=== PATIENT | male | born 1945 | race Caucasian/White ===

== ENCOUNTER → 2016-10-09 11:06 | Outpatient (CLI) | payer MEDICARE | END | disposition home or self-care (01) | LOC: D.MRI 11:06 | DX: M54.16 Radiculopathy, lumbar region (principal) ==

== ENCOUNTER → 2018-07-28 11:33 | Outpatient (CLI) | payer MEDICARE ==
[~2018-07-28 11:33] MED LIST: BAYER CHEWABLE81 MG; LEVOTHYROXINE150 MCG PO; LIPITOR20 MG PO; PLAVIX75 MG PO
== END | disposition home or self-care (01) ==
LOC: D.HCCARDIO 11:33
DX: I20.9 Angina pectoris, unspecified (principal)

== ENCOUNTER 2018-08-25 10:37 | Outpatient (CLI) | payer MEDICARE ==
[~2018-08-25] VITALS: Ht 180.3 cm; Wt 88.6 kg
--- NOTE | ~2018-08-25 | HEMODYNAMI ---
PATIENT:SHERRI KAUR MEDICAL RECORD: [id number] : 41 LOCATION:[facility] ADMISSION DATE: 08/25/18 Generatedon:08/25/201814:25 Patient name: SHERRI KAUR Patient #: [id number] SSN: : 1945 Date of study: 08/25/2018 Page: Of Hemodynamic Procedure Report Patient Data Patient Demographics Procedure consent was obtained First Name: SHERRI Gender: Male Last Name: VINCENT : 1945 [facility] Initial: PUSHPA Age: 73 year(s) Patient #: [id number] Race: Unknown Additional ID: [id number] Contact details [address]: [address] [place] [address] State: [place] City: [place] Zip code: [address] Past Medical History Allergies: No known allergies Admission Admission Data Admission Date: 08/25/2018 Admission Time: 10:37 Weight (lbs.): 196.21 Weight (kg.): 89 Lab Results Lab Result Date: 08/25/2018 Lab Result Time: 0:00 Biochemistry Name Units Result Min Max BUN mg/dl 16 --(---*)-- 7 18 Creatinine mg/dl 1.1 --(--*-)-- 0.6 1.3 CBC Name Units Result Min Max Hematocrit % 49.9 --(--*-)-- 42 54 Hemoglobin g/dl 17.3 --(---*)-- 13.5 17.5 Procedure Procedure Types Cath Procedure Diagnostic Procedure LHC LHC w/Coronaries FFR/IVUS FFR Initial Intra-Coronary IVUS Initial Sedation Charges Moderate Sedation up to 15 minutes Procedure Description Procedure Date Procedure Date: 08/25/2018 Procedure Start Time: 13:43 Procedure End Time: 14:24 Procedure Staff Name Function Isaac Mcgregor MD Performing Physician Yuli Mueller RT Monitor Blayne Galeano RT Scrub Alisha Allan RN Nurse Agnieszka Menchaca RT Monitor Procedure Data Cath Procedure Fluoroscopy Diagnostic fluoroscopy Total fluoroscopy Time: time: 10.6 min 10.6 min Diagnostic fluoroscopy Total fluoroscopy dose: dose: 1290 mGy 1290 mGy Contrast Material Contrast Material Type Amount (ml) Isovue 300 151 Entry Location Entry Primary Successful Side Size Upsize Upsize Entry Closure Alberto ccessful Closure Location (Fr) 1 (Fr) 2 (Fr) Remarks Device Remarks Radial Right 6 Fr Mechanical artery Short Compression Estimated blood loss: 5 ml Diagnostic catheters Device Type Used For End Catheter Placement DIAGNOSTIC Adithya 110cm Multi-vessel 5Fr catheter ([id number]) Angiography DIAGNOSTIC Bidwell 110cm 5 Multi-vessel Fr catheter (698829) Angiography Procedure Complications No complications Procedure Medications Medication Administration Route Dosage 0.9% NaCl I.V. 100 ml/hr Oxygen etCO2 Nasal cannula 2 l/min Lidocaine 2% added to field 20 Heparin Flush Bag added to field 2 bags (1000units/500ml NS) Radial Cocktail added to field 1 syringe (Verapamil 2mg/Nitro 400mcg/Heparin 1500units) Versed I.V. 2 mg Fentanyl I.V. 50 mcg Versed I.V. 2 mg Heparin Bolus I.V. 5000 units Fentanyl I.V. 50 mcg Hemodynamics Rest HGB: 17.3 (g/dl) Heart Rate: 73 (bpm) Pressure Samples Time Site Value (mmHg) Purpose Heart Use Rate(bpm) 13:45 LV 136/-3,5 Snapshot 72 13:46 AO 131/60(93) Pullback 74 13:46 LV 141/-10,5 Pullback 74 Gradients Valve Time Site 1 Site 2 Mean SEP/DFP Peak To Heart Use (mmHg) (sec/min) Peak Rate (mmHg) (bpm) Aortic 13:46 LV AO 20 8 10 74 141/-10,5 131/60(93) Calculations Valve P-P Mean Valve Index Valve Source Name Gradient Area Flow (cm2) Aortic 10 20 10 20 Snapshots Pre Cath Intra NCS Post Cath Vital Signs Time Heart Resp SPO2 etCO2 NIBP (mmHg) Rhythm Pain Sedation Rate (ipm) (%) (mmHg) Status Level (bpm) 13:32:31 69 16 100 38.2 182/98(153) NSR 0 (11) 10(A) , No pain 13:37:09 71 10 100 35.2 170/80(127) NSR 0 (11) 10(A) , No pain 13:41:31 69 13 98 14.9 141/80(116) NSR 0 (11) 10(A) , No pain 13:45:50 87 13 99 25.5 129/76(107) NSR 0 (11) 9(A) , No pain 13:50:12 70 12 98 29.2 138/71(110) NSR 0 (11) 9(A) , No pain 13:54:34 72 13 97 36 138/72(112) NSR 0 (11) 9(A) , No pain 13:58:58 69 12 96 34.4 137/72(112) NSR 0 (11) 9(A) , No pain 14:03:21 71 13 97 10.4 141/71(119) NSR 0 (11) 9(A) , No pain 14:07:45 71 13 98 36.7 142/71(116) NSR 0 (11) 9(A) , No pain 14:12:13 70 12 98 28.4 137/67(99) NSR 0 (11) 9(A) , No pain 14:16:39 70 11 98 32.9 145/69(111) NSR 0 (11) 10(A) , No pain 14:20:59 67 10 98 36.7 136/71(116) NSR 0 (11) 10(A) , No pain Medications Time Medication Route Dose Verified Delivered Reason Not es Effectiveness by by 13:33:24 0.9% NaCl I.V. 100 Isaac Alisha used for ml/hr Balbir Allan weighter 13:33:31 Oxygen etCO2 2 l/min Isaac Alisha used for Nasal Balbir Allan procedure cannula RN 13:33:37 Lidocaine 2% added 20ml Isaac Isaac for local to vial Balbir Mcgregor MD anesthetic field 13:33:42 Heparin Flush added 2 bags Isaac Isaac used for Bag to Balbir Mcgregor MD procedure (1000units/500ml field NS) 13:33:47 Radial Cocktail added 1 Isaac Isaac used for (Verapamil to syringe Balbir Mcgregor MD procedure 2mg/Nitro field 400mcg/Heparin 1500units) 13:38:57 Versed I.V. 2 mg Isaac Alisha for sedation Balbir Allan RN 13:39:02 Fentanyl I.V. 50 mcg Isaac Alisha for sedation Balbir Allan RN 13:43:07 Versed I.V. 2 mg Isaac Alisha for sedation Balbir Allan RN 13:43:55 Fentanyl I.V. 50 mcg Isaac Alisha for sedation Balbir Allan RN 13:59:02 Heparin Bolus I.V. 5000 Isaac Alisha for hugo ified units Balbir Allan anticoagulation with Dr. LISA Mcgregor Procedure Log Time Note 12:42:27 Patient Weight : 196.21 lbs 12:54:58 Signed procedure consent form obtained from patient. 12:55:01 Diagnostic Cath status Elective 12:55:02 Time tracking: Regular hours (M-F 7:00 - 5:00) 12:55:08 Plan of Care:Hemodynamics will remain stable., Cardiac rhythm will remain stable., Comfort level will be maintained., Respiratory function will remain adequate., Patient/ family verbilizes understanding of procedure., Procedure tolerated without complication., Recovers from procedure without complications.. 12:55:33 H&P Date Dictated: 08/25/2018 Within 30 days and on chart., H&P Addendum completed by physician on day of procedure. (MUST COMPLETE FOR ALL OUTPATIENTS). 12:55:40 Patient allergic to No known allergies 13:10:33 Lab Result : BUN 16 mg/dl 13:10:33 Lab Result : Hemoglobin 17.3 g/dl 13:10:33 Lab Result : Creatinine 1.1 mg/dl 13:10:33 Lab Result : Hematocrit 49.9 % 13:19:40 Yuli Mueller RT(R) sent for patient. Start room use. 13:24:03 Patient received from Pre/Post Procedure Room to CCL 1 Alert and oriented. Tansferred to table in Supine position. 13:24:05 Warm blankets applied, and adam hugger turned on for patient comfort. 13:24:06 Correct patient and procedure confirmed by team. 13:24:11 ECG and BP/O2 sat monitors applied to patient. 13:24:12 Pre-procedure instructions explained to patient. 13:24:12 Pre-op teaching completed and patient verbalized understanding. 13:33:24 0.9% NaCl 100 ml/hr I.V. was administered by Alisha Allan RN; used for procedure; 13:33:31 Oxygen 2 l/min etCO2 Nasal cannula was administered by Alisha Allan RN; used for procedure; 13:33:37 Lidocaine 2% 20ml vial added to field was administered by Isaac Mcgregor MD; for local anesthetic; 13:33:42 Heparin Flush Bag (1000units/500ml NS) 2 bags added to field was administered by Isaac Mcgregor MD; used for procedure; 13:33:47 Radial Cocktail (Verapamil 2mg/Nitro 400mcg/Heparin 1500units) 1 syringe added to field was administered by Isaac Mcgregor MD; used for procedure; 13:36:48 Rhythm: sinus rhythm 13:36:49 Baseline sample Acquired. 13:36:52 Full Disclosure recording started 13:36:57 Family in waiting room. 13:36:59 Patient NPO since Midnight. 13:37:00 Is patient on blood thinner?No 13:37:01 Patient diabetic? No. 13:37:04 Previous problem with sedation/anesthesia? No ? 13:37:05 Snore? Yes 13:37:06 Sleep apnea? No 13:37:07 Deviated septum? No 13:37:08 Opens mouth fully? Yes 13:37:09 Sticks out tongue? Yes 13:37:10 Airway obstruction? No ? 13:37:12 Dentures? No ? 13:37:13 Modified Isacc's test Ulnar < 7 seconds 13:37:15 Patient pain scale 0/10 ?. 13:37:18 IV patent on arrival in left hand with 0.9% NaCl at [facility]. 13:37:20 Lab results completed and on chart. 13:37:22 Right Radial & Right Groin area was prepped with chlora-prep and draped in sterile fashion 13:37:23 Alarms reviewed by R. N. 13:37:24 Sharps counted by scrub and verified by R.N. 13:37:27 Use device set Radial Dx or PCI 13:37:29 ACIST Syringe (92479) opened to sterile field. 13:37:31 Bag Decanter (2001S) opened to sterile field. 13:37:31 ACIST Hand Control (51773) opened to sterile field. 13:37:32 ACIST Manifold (94350) opened to sterile field. 13:37:32 Tegaderm 4 x 4 (1626W) opened to sterile field. 13:37:33 Medline Cath Pack ([id number]) opened to sterile field. 13:37:33 DIAGNOSTIC WIRE .035 260cm J wire (558837) opened to sterile field. 13:37:34 MBrace Wrist Support ([id number]) opened to sterile field. 13:37:35 SHEATH 6FR Slender (83-4937) opened to sterile field. 13:37:36 NEEDLE Cook 21G 4cm Radial (L32324) opened to sterile field. 13:38:31 --------ALL STOP TIME OUT------ 13:38:32 Final Timeout: patient, procedure, and site verified with staff and physician. All members of the team are in agreement. 13:38:33 Right Radial & Right Groin site verified by team. 13:38:35 Maximum allowable Isovue 300 dose 300ml. Physician notified. (300ml for normal creatinines. For patients with creatinine of 1.7 or higher multiply weight(kg) x 5 divided by creatinine.) 13:38:39 Fire Safety Assessment: A--An alcohol-based skin anteseptic being used preoperatively., C--Open oxygen or nitrous oxide is being used., D--An ESU, laser, or fiber-optic light is being used. 13:38:40 Physical assessment completed. ASA score P 2 - A patient with mild systemic disease as per Isaac Mcgregor MD. 13:38:43 Sedation plan: IV Moderate Sedation Medication:Versed, Fentanyl 13:38:57 Versed 2 mg I.V. was administered by Alisha Allan RN; for sedation; 13:39:02 Fentanyl 50 mcg I.V. was administered by Alisha Allan RN; for sedation; 13:43:07 Versed 2 mg I.V. was administered by Alisha Allan RN; for sedation; 13:43:18 Procedure started. 13:43:41 Local anesthetic to right radial artery with Lidocaine 2% by Isaac Mcgregor MD.INITIAL ACCESS ONLY 13:43:51 A 6 Fr Short sheath was inserted into the Right Radial artery 13:43:55 Fentanyl 50 mcg I.V. was administered by Alisha Allan RN; for sedation; 13:44:42 A DIAGNOSTIC Adithya 110cm 5Fr catheter (256931) was advanced over the wire and used for Multi-vessel Angiography. 13:45:53 LV hemodynamics recorded. 13:45:55 LV gram done using SHEIKH 13:46:02 Injector settings: Ml/sec: 5, Volume: 15, 13:46:11 EF : 55 % 13:46:50 RCA angiography performed. 13:46:54 Injector settings: Ml/sec: 3, Volume: 6, 13:49:11 Catheter removed. 13:49:23 A DIAGNOSTIC Bidwell 110cm 5 Fr catheter (124987) was advanced over the wire and used for Multi-vessel Angiography. 13:54:45 LCA angiography performed. 13:54:59 Injector settings: Ml/sec: 3, Volume: 6, 13:55:01 Catheter removed. 13:55:02 Proceeding to intervention. 13:56:09 INFLATOR Merit BasixCompak (RH3771) opened to sterile field. 13:56:10 BMW 300cm [place] 2 J wire ([id number]) opened to sterile field. 13:56:11 TUBING High Pressure Extension Tubing (Balbir) (YG1800O) opened to sterile field. 13:56:49 GUIDE 6FR XBLAD 3.5 catheter (02954198) opened to sterile field. 13:57:06 Grenola Verrata Plus pressure wire (92263M) opened to sterile field. 13:57:23 6 Fr xblad 3.5 guide catheter was inserted over the wire 13:59:02 Heparin Bolus 5000 units I.V. was administered by Alisha Allan RN; for anticoagulation; verified with Dr. Mcgregor 13:59:02 FFR/IFR wire advanced. 13:59:49 Wire advanced across lesion. 14:13:36 lad lesion measured at 0.99 with IFR 14:13:52 Grenola [place] IVUS Catheter (70465A) opened to sterile field. 14:14:28 IVUS catheter advanced over wire. 14:20:45 IVUS pass to LAD lesion performed. 14:20:46 IVUS catheter removed over wire. 14:20:57 Wire removed. 14:20:57 Guide catheter removed. 14:21:03 TR BAND Standard (IWQ14SYS) opened to sterile field. 14:22:04 Sheath removed intact; hemostasis achieved with Mechanical Compression to the Right Radial artery. 14:22:06 Procedure ended.(Physican Out) 14:22:24 Fluoroscopy time 10.60 minutes. 14:22:31 Fluoroscopy dose: 1290 mGy 14:22:31 Flurop Dose total: 1290 14:22:35 Contrast amount:Isovue 300 151ml. 14:22:47 Sharps counted by scrub and verified by R.N. 14:22:51 TR band inflated with 11cc of air. 14:22:59 Insertion/operative site no bleeding no hematoma. 14:23:03 Post procedure rhythm: unchanged. 14:23:06 Estimated blood loss: 5 ml 14:23:08 Post procedure instruction explained to patient.Patient verbalizes understanding. 14:23:08 Patient needs reinforcement of post procedure teaching. 14:23:43 Procedure type changed to Cath procedure, Diagnostic procedure, LHC, LHC w/Coronaries, FFR/IVUS, FFR Initial, Intra-Coronary IVUS Initial, Sedation Charges, Moderate Sedation up to 15 minutes 14:23:45 Procedure and supply charges have been captured, reviewed, submitted and are correct. 14:23:51 Procedure Complication : No complications 14:23:54 Vital chart was stopped 14:23:54 See physician's report for complete and final results. 14:23:57 Report given to Pre/Post Procedure Room. 14:23:59 Patient transfered to Pre/Post Procedure Room with Stretcher. 14:24:01 Procedure ended. 14:24:01 Full Disclosure recording stopped 14:24:06 End room use (Document Last) Device Usage Item Name Manufacture Quantity Catalog Hospital Part Current Mini mal Lot# / Number Charge Number Stock Stock Serial# Code ACIST Acist 1 20439 079107 146794 136300 20 Syringe Medical (47866) Systems Inc Bag Microtek 1 345666 38383 204607 5 Decanter Medical Inc. () ACIST Hand Acist 1 59587 153491 744385 769161 5 Control Medical (08025) Systems Inc ACIST Acist 1 44870 455592 429316 947565 5 Manifold Medical (33472) Systems Inc Tegaderm 4 3M 1 1626W 240360 469014 154446 5 x 4 (1626W) Medline Medline 1 [id number] 059152 39308 719565 5 Cath Pack ([id number]) DIAGNOSTIC St Rodolfo 1 711831 710071 177822 952407 30 WIRE .035 260cm J wire (767758) MBrace Advanced 1 140-0250-00 567249 00466 032212 5 Wrist Vascular Support Dynamics ([id number]) SHEATH 6FR Terumo 1 [id number] 426243 248176 246461 5 Slender (80-1060) NEEDLE [facility] 1 Z85781 775968 861109 980301 5 21G 4cm Radial (Q62723) DIAGNOSTIC Terumo 1 40-5023 045427 425240 866859 5 Adithya 110cm 5Fr catheter (038914) DIAGNOSTIC Terumo 1 40-5013 163672 116023 696520 5 Bidwell 110cm 5 Fr catheter (800995) INFLATOR Merit 1 QL3482 685426 922813 685787 15 [facility] Medical BasixCompak (AM6126) BMW 300cm Bertrand 1 [id number] 023849 785489 130864 5 [place] 2 Vascular J wire (6760502Q) TUBING High [facility] 1 [id number] 090045 97898 368024 10 Pressure Medical Extension Tubing (Mcgregor) (PU0202N) GUIDE 6FR Cardinal 1 [id number] 159321 254079 018308 10 XBLAD 3.5 Health catheter (43685398) [facility] 1 18837P 574347 887408633 301181 5 Verrata Plus pressure wire (86541X) [facility] 1 46939Z 315787 170695 738180 8 [employer] [place] [employer] [place] IVUS Catheter (19541D) TR BAND Terumo 1 [id number] 998578 564523 415030 40 Standard ([id number]) Signature Audit [place] Stage Time Signature Unsigned Intra-Procedure 08/25/2018 Agnieszka Menchaca 2:25:32 PM RT(R) Signatures Monitor : Yuli Mueller Signature : RT Date : Time : Monitor : Agnieszka Menchaca RT Signature : Date : Time : [address] [place] [address]
[2018-08-25] MEDS ORDERED: LEVOTHYROXINE150 MCG PO (10:49)
[2018-08-25] MEDS ORDERED: LIPITOR20 MG PO (10:49)
[2018-08-25 11:01] VITALS: BP 199/83; Ht 180.3 cm; Wt 88.6 kg
[2018-08-25 11:17] LABS: BASOPHILS 0.7 % (0-2); EOSINOPHILS 3.8 % (0-7); HEMATOCRIT 49.9 % (42.0-54.0); HEMOGLOBIN 17.3 g/dL (13.5-17.5); IMMATURE GRANULOCYTES 0.2 % (0-5); MCH 31.3 pg (26.0-34.0); MCHC 34.7 g/dL (31.0-37.0); MCV 90.2 fL (80.0-100.0); MEAN PLATELET VOLUME 13.3 fL (7.4-10.4); MONOCYTES 12.7 % (2-11); NEUTROPHILS 56.6 % (40-80); PLATELET COUNT 103 10x3/uL (130-400); RBC 5.53 10x6/uL (4.20-6.10); RDW 12.1 % (11.5-14.5); WBC 8.1 10x3/uL (4.8-10.8)
[2018-08-25 11:29] LABS: ANION GAP 11.6 mmol/L (8-16); CALCIUM 10.1 mg/dL (8.5-10.1); CARBON DIOXIDE 25.6 mmol/L (21.0-32.0); CREATININE - SERUM 1.1 mg/dL (0.6-1.3); POTASSIUM - SERUM 4.2 mmol/L (3.5-5.1)
--- NOTE | 2018-08-25 14:32 | NUR ---
PT ARRIVED BY STRETCHER. PLACED ON MONITOR. ASSESSMENT COMPLETED. PT'S FRIEND AT BEDSIDE. CALL LIGHT WITHIN REACH.
--- NOTE | 2018-08-25 14:44 | NUR ---
PT MORE ALERT. GIVEN SPRITE TO DRINK. DENIES NAUSEA. VSS. RIGHT WRIST TR BAND IN PLACE. NO BLEEDING/HEMATOMA NOTED.
--- NOTE | 2018-08-25 15:20 | NUR ---
PT SITTING UP EATING TURKEY SANDWICH. VSS. RIGHT RADIAL TR BAND IN PLACE. NO BLEEDING/HEMATOMA NOTED. DR. GARCIA HAS ROUNDED AND SPOKE WITH PT AND PT'S FRIEND AT BEDSIDE.
--- NOTE | 2018-08-25 15:50 | NUR ---
RIGHT WRIST TR BAND IN PLACE. NO BLEEDING/HEMATOMA NOTED. VSS. PT RESTING COMFORTABLY. NO NEEDS AT THIS TIME.
--- NOTE | 2018-08-25 16:18 | NUR ---
PT RESTING COMFORTABLY. RIGHT RADIAL TR BAND IN PLACE. NO BLEEDING/HEMATOMA NOTED. VSS. WILL CONTINUE TO MONITOR.
--- NOTE | 2018-08-25 17:00 | NUR ---
3cc OF AIR REMOVED FROM TR BAND. PT TOLERATED WELL. NO BLEEDING/HEMATOMA NOTED. VSS.
--- NOTE | 2018-08-25 17:15 | NUR ---
3cc OF AIR REMOVED FROM TR BAND. PT TOLERATED WELL. NO BLEEDING/HEMATOMA NOTED. VSS.
--- NOTE | 2018-08-25 17:33 | NUR ---
LEFT FA PIV D/C'D WITH CATH TIP INTACT. PT TOLERATED WELL. 3cc OF AIR REMOVED FROM TR BAND. NO BLEEDING/HEMATOMA. PT INSTRUCTED TO GET UP AND DRESSED.
--- NOTE | 2018-08-25 17:37 | NUR ---
PT AMBULATED TO RESTROOM. VOIDED WITHOUT DIFFICULTY.
--- NOTE | 2018-08-25 17:40 | NUR ---
TR BAND REMOVED. DRESSING APPLIED. NO BLEEDING/HEMATOMA NOTED. DISCUSSED DISCHARGE INSTRUCTIONS WITH PT. HE VOICED UNDERSTANDING.
--- NOTE | 2018-08-25 17:50 | NUR ---
RIGHT WRIST DRESSING C/D/I. NO S/S OF HEMATOMA NOTED. PT TAKEN OUT TO VEHICLE BY WHEELCHAIR. NO S/S OF DISTRESS NOTED. ALL BELONGINGS AND PAPERWORK IN HAND.
== END 2018-08-25 17:50 | disposition home or self-care (01) ==
LOC: D.CATH 10:37
PROVIDERS: ATTEND Internal Medicine Cardiovascular Disease
DX: I25.119 Atherosclerotic heart disease of native coronary artery with unspecified angina pectoris (principal); R94.30 Abnormal result of cardiovascular function study, unspecified; Z01.812 Encounter for preprocedural laboratory examination

== ENCOUNTER 2018-09-01 11:10 | Outpatient (CLI) | payer MEDICARE ==
[~2018-09-01] VITALS: Ht 180.3 cm; Wt 88.6 kg
--- NOTE | ~2018-09-01 | HEMODYNAMI ---
PATIENT:SHERRI KAUR MEDICAL RECORD: [id number] : 41 LOCATION:D.CAT ADMISSION DATE: 09/01/18 Generatedon:09/01/201816:08 Patient name: SHERRI KAUR Patient #: [id number] SSN: : 1945 Date of study: 09/01/2018 Page: Of Hemodynamic Procedure Report Patient Data Patient Demographics Procedure consent was obtained First Name: SHERRI Gender: Male Last Name: VINCENT : 1945 [facility] Initial: PUSHPA Age: 73 year(s) Patient #: [id number] Race: Unknown Additional ID: [id number] Contact details Address: [address] [place] [address] State: [place] City: [place] Zip code: [address] Past Medical History Allergies: No known allergies Admission Admission Data Admission Date: 09/01/2018 Admission Time: 11:10 Procedure Procedure Types Cath Procedure PCI Procedure Coronary Stent Coronary Stent Initial Procedure Description Procedure Date Procedure Date: 09/01/2018 Procedure Start Time: 15:46 Procedure End Time: 16:05 Procedure Staff Name Function Isaac Ayers MD Performing Physician Agnieszka Menchaca RT Monitor Kwadwo Saldaña RT Scrub Mason Leslie RN Nurse Procedure Data Cath Procedure Fluoroscopy Diagnostic fluoroscopy Total fluoroscopy Time: 2.9 time: 2.9 min min Diagnostic fluoroscopy Total fluoroscopy dose: 536 dose: 536 mGy mGy Contrast Material Contrast Material Type Amount (ml) Isovue 300 64 Entry Location Entry Primary Successful Side Size Upsize Upsize Entry Closure Succes sful Closure Location (Fr) 1 (Fr) 2 (Fr) Remarks Device Remarks Femoral Right 6 Fr Exoseal artery Short Estimated blood loss: 5 ml Procedure Complications No complications Procedure Medications Medication Administration Route Dosage Oxygen etCO2 Nasal cannula 2 l/min Lidocaine 2% added to field 20 Heparin Flush Bag added to field 2 bags (1000units/500ml NS) 0.9% NaCl I.V. 100 ml/hr Versed I.V. 2 mg Fentanyl I.V. 50 mcg Versed I.V. 2 mg Fentanyl I.V. 50 mcg Heparin Bolus I.V. 9000 units Nitroglycerin IC/IA I.C. 100 mcg Plavix P.O. 600 mg Hemodynamics Rest HGB: 17.3 (g/dl) Heart Rate: 76 (bpm) Snapshots Pre Cath Intra NCS Post Cath Vital Signs Time Heart Resp SPO2 etCO2 NIBP (mmHg) Rhythm Pain Sedation Rate (ipm) (%) (mmHg) Status Level (bpm) 15:33:54 83 19 98 0 Measuring NSR 0 (11) 10(A) , No pain 15:34:18 78 18 100 0 189/98(153) NSR 0 (11) 10(A) , No pain 15:38:40 74 15 96 35.6 165/83(126) NSR 0 (11) 10(A) , No pain 15:43:01 71 12 94 21.5 154/82(127) NSR 0 (11) 10(A) , No pain 15:47:20 68 13 96 25.2 155/83(134) NSR 0 (11) 9(A) , No pain 15:51:38 70 12 94 26.7 145/77(107) NSR 0 (11) 9(A) , No pain 15:55:57 73 11 94 28.2 136/73(101) NSR 0 (11) 9(A) , No pain 16:00:11 71 13 94 33.4 147/81(120) NSR 0 (11) 9(A) , No pain 16:05:24 71 12 96 28.9 175/98(157) NSR 0 (11) 10(A) , No pain Medications Time Medication Route Dose Verified Delivered Reason Notes Effectiveness by by 15:38:02 Oxygen etCO2 2 Isaac Buffie used for Nasal l/min Balbir Leslie RN procedure cannula 15:38:09 Lidocaine 2% added 20ml Isaac Isaac for local to vial Balbir Ayers MD anesthetic field 15:38:16 Heparin Flush added 2 Isaac Isaac used for Bag to bags Balbir Ayers MD procedure (1000units/500ml field NS) 15:38:25 0.9% NaCl I.V. 100 Isaac Buffie Per physician ml/hr Balbir Leslie RN 15:41:33 Versed I.V. 2 mg Isaac Buffie for sedation Balbir Leslie RN 15:41:40 Fentanyl I.V. 50 Isaac Buffie for sedation mcg Balbir Leslie RN 15:46:33 Versed I.V. 2 mg Isaac Buffie for sedation Balbir Leslie RN 15:46:37 Fentanyl I.V. 50 Isaac Buffie for sedation mcg Balbir Leslie RN 15:49:59 Heparin Bolus I.V. 9000 Isaac Buffie for verif ied units Balbir Leslie RN anticoagulation with dr ayers 15:53:16 Nitroglycerin I.C. 100 Isaac Isaac for IC/IA mcg Balbir gamble 16:07:32 Plavix P.O. 600 Isaac Buffie for mg Balbir Leslie RN antiplatelet therapy Procedure Log Time Note 14:58:55 Diagnostic Cath Status : Elective 14:59:20 Kwadwo Suit RT(R) sent for patient. Start room use. 14:59:22 Time tracking: Regular hours (M-F 7:00 - 5:00) 14:59:27 Plan of Care:Hemodynamics will remain stable., Cardiac rhythm will remain stable., Comfort level will be maintained., Respiratory function will remain adequate., Patient/ family verbilizes understanding of procedure., Procedure tolerated without complication., Recovers from procedure without complications.. 15:26:58 Patient received from Pre/Post Procedure Room to CCL 2 Alert and oriented. Tansferred to table in Supine position. 15:27:03 Warm blankets applied, and adam hugger turned on for patient comfort. 15:27:03 Correct patient and procedure confirmed by team. 15:27:05 Signed procedure consent form obtained from patient. 15:27:06 ECG and BP/O2 sat monitors applied to patient. 15:32:04 Vital chart was started 15:32:05 Baseline sample Acquired. 15:32:10 Rhythm: sinus rhythm 15:32:11 Full Disclosure recording started 15:32:15 H&P Date Dictated: 09/01/2018 Within 30 days and on chart., H&P Addendum completed by physician on day of procedure. (MUST COMPLETE FOR ALL OUTPATIENTS). 15:32:16 Pre-procedure instructions explained to patient. 15:32:17 Pre-op teaching completed and patient verbalized understanding. 15:32:18 Family in waiting room. 15:32:19 Patient NPO since Midnight. 15:32:21 Is the patient allergic to Iodine/contrast media? No. 15:32:22 Was the patient premedicated? No 15:32:23 Is patient on blood thinner?No 15:32:24 Patient diabetic? No. 15:32:26 Previous problem with sedation/anesthesia? No ? 15:32:28 Snore? Yes 15:32:29 Sleep apnea? No 15:32:29 Deviated septum? No 15:32:30 Opens mouth fully? Yes 15:32:31 Sticks out tongue? Yes 15:32:32 Airway obstruction? No ? 15:32:35 Dentures? No ? 15:32:38 Pre procedure: right dorsailis pedis pulse 2+ Normal; easily identifiable; not easily obliterated 15:32:41 Pre procedure: left dorsailis pedis pulse 2+ Normal; easily identifiable; not easily obliterated 15:32:44 Patient pain scale 0/10 ?. 15:32:52 IV patent on arrival in right antecubital with 0.9% NaCl at [facility]. 15:32:54 Lab results completed and on chart. 15:32:59 Right groin area was prepped with chlora-prep and draped in sterile fashion 15:33:00 Alarms reviewed by R. N. 15:33:00 Sharps counted by scrub and verified by R.N. 15:33:02 Physician arrived 15:33:02 --------ALL STOP TIME OUT------ 15:33:03 Final Timeout: patient, procedure, and site verified with staff and physician. All members of the team are in agreement. 15:33:04 Right groin site verified by team. 15:33:07 Maximum allowable Isovue 300 dose 300ml. Physician notified. (300ml for normal creatinines. For patients with creatinine of 1.7 or higher multiply weight(kg) x 5 divided by creatinine.) 15:33:11 Fire Safety Assessment: A--An alcohol-based skin anteseptic being used preoperatively., C--Open oxygen or nitrous oxide is being used., D--An ESU, laser, or fiber-optic light is being used. 15:33:13 Physical assessment completed. ASA score P 2 - A patient with mild systemic disease as per Isaac Ayers MD. 15:33:16 Sedation plan: IV Moderate Sedation Medication:Versed, Fentanyl 15:38:02 Oxygen 2 l/min etCO2 Nasal cannula was administered by Mason Leslie RN; used for procedure; 15:38:09 Lidocaine 2% 20ml vial added to field was administered by Isaac Ayers MD; for local anesthetic; 15:38:16 Heparin Flush Bag (1000units/500ml NS) 2 bags added to field was administered by Isaac Ayers MD; used for procedure; 15:38:25 0.9% NaCl 100 ml/hr I.V. was administered by Mason Leslie RN; Per physician; 15:40:08 Use device set CATH PACK 15:40:10 ACIST Syringe (20788) opened to sterile field. 15:40:10 ACIST Hand Control (22524) opened to sterile field. 15:40:11 ACIST Manifold (42147) opened to sterile field. 15:40:11 Medline Cath Pack ([id number]) opened to sterile field. 15:40:12 Bag Decanter (2002S) opened to sterile field. 15:40:12 DIAGNOSTIC WIRE .035 260cm J wire (740105) opened to sterile field. 15:40:57 SHEATH 6FR Norris (JHF800) opened to sterile field. 15:40:58 INFLATOR Merit BasixCompak (YK4134) opened to sterile field. 15:40:58 BMW 300cm [place] 2 J wire ([id number]) opened to sterile field. 15:41:33 Versed 2 mg I.V. was administered by Mason Leslie RN; for sedation; 15:41:40 Fentanyl 50 mcg I.V. was administered by Mason Leslie RN; for sedation; 15:43:19 Zero performed for pressure channel P1 15:45:53 Zero performed for pressure channel P1 15:46:06 Procedure started. 15:46:10 Local anesthetic to right femoral artery with Lidocaine 2% by Isaac Ayers MD.INITIAL ACCESS ONLY 15:46:18 A 6 Fr Short sheath was inserted into the Right Femoral artery 15:46:33 Versed 2 mg I.V. was administered by Mason Leslie RN; for sedation; 15:46:37 Fentanyl 50 mcg I.V. was administered by Mason Leslie RN; for sedation; 15:47:05 GUIDE 6FR XBLAD 3.5 catheter ([id number]) opened to sterile field. 15:47:13 6 Fr xblad 3.5 guide catheter was inserted over the wire 15:48:31 LCA angiography performed. 15:48:34 Injector settings: Ml/sec: 3, Volume: 6, 15:49:59 Heparin Bolus 9000 units I.V. was administered by Mason Leslie RN; for anticoagulation; verified with dr ayers 15:53:16 Nitroglycerin IC/IA 100 mcg I.C. was administered by Isaac Ayers MD; for vasodilation; 16:02:28 bmw wire advanced. 16:02:34 Place stent Inflation Number: 1 A TIBURCIO RX 3.0 x 15 stent ([id number]) was prepped and advanced across the Prox LAD. The stent was deployed at 14 MAXIMUS for 0:10 (min:sec). 16:02:39 Stent catheter was removed intact over wire. 16:02:39 Wire removed. 16:02:40 Guide catheter removed. 16:02:48 Sheath removed intact; hemostasis achieved with Exoseal to the Right Femoral artery. 16:02:50 Procedure ended.(Physican Out) 16:03:18 Fluoroscopy time 02.90 minutes. 16:03:22 Flurop Dose total: 536 16:03:22 Fluoroscopy dose: 536 mGy 16:03:27 Contrast amount:Isovue 300 64ml. 16:03:28 Sharps counted by scrub and verified by R.N. 16:03:30 Insertion/operative site no bleeding no hematoma. 16:03:33 Post-op/insertion site Right Femoral artery dressed using a 4 x 4 and Tegaderm. 16:03:35 Post right femoral artery:stable 16:04:39 Post Procedure Pulses reassessed and unchanged 16:04:42 Post procedure rhythm: unchanged. 16:04:44 Estimated blood loss: 5 ml 16:04:46 Post procedure instruction explained to patient.Patient verbalizes understanding. 16:04:46 Patient needs reinforcement of post procedure teaching. 16:04:50 Procedure type changed to Cath procedure, PCI procedure, Coronary Stent, Coronary Stent Initial 16:04:51 Procedure and supply charges have been captured, reviewed, submitted and are correct. 16:04:55 Procedure Complication : No complications 16:04:57 Vital chart was stopped 16:04:57 See physician's report for complete and final results. 16:04:59 Report given to Pre/Post Procedure Room. 16:05:02 Patient transfered to Pre/Post Procedure Room with Stretcher. 16:05:04 Procedure ended. 16:05:04 Full Disclosure recording stopped 16:05:18 ACC-PCI Only Patient was given prescriptions, or instructed by Isaac Ayers MD to start/continue the following medications upon discharge: Plavix 16:05:20 End room use (Document Last) 16:07:21 EXOSEAL 6Fr (EX600) opened to sterile field. 16:07:32 Plavix 600 mg P.O. was administered by Mason Leslie RN; for antiplatelet therapy; Intervention Summary Intervention Notes Time ActionType Lesion and Equipment Used Action# Pressure Duration Attributes 16:02:34 Place stent Prox LAD TIBURCIO RX 3.0 x 1 14 00:10 15 stent ([id number]) Device Usage Item Name Manufacture Quantity Catalog [facility] Lot# / Number Charge Number Stock Stock Serial# Code ACIST Syringe Acist 1 19585 553497 153431 108206 20 (86095) Medical Systems Inc ACIST Hand Acist 1 27244 534338 077119 248198 5 Control Medical (42588) Systems Inc ACIST Manifold Acist 1 89916 726535 661583 044215 5 (04129) Medical Systems Inc Medline Cath Medline 1 [id number] 365973 75778 614531 5 Pack ([id number]) Bag Decanter Microtek 1 2001S 423247 04301 096335 5 (2001S) Medical Inc. DIAGNOSTIC St Rodolfo 1 019301 297829 734143 234272 30 WIRE .035 260cm J wire (961640) SHEATH 6FR Terumo 1 [id number] 721708 771332 248428 40 Norris (HNZ543) INFLATOR Merit Merit 1 RU9576 431761 723048 003689 15 [email or web address] (WX2716) BMW 300cm Bertrand 1 [id number] 568608 833258 608336 5 [place] 2 J Vascular wire ([id number]) GUIDE 6FR Cardinal 1 [id number] 359902 443760 180390 10 XBLAD 3.5 Health catheter ([id number]) TIBURCIO RX 3.0 x Medtronic 1 [id number] 999996 5439186 048538 5 [id number] 15 stent ([id number]) EXOSEAL 6Fr Cardinal 1 EX600 982050 823157 253603 10 (EX600) Health Signature Audit [place] Stage Time Signature Unsigned Intra-Procedure 09/01/2018 Agnieszka Menchaca 4:08:39 PM RT(R) Signatures Monitor : Agnieszka Menchaca RT Signature : Date : Time : [place] [id number] [facility] [place] [address]
[~2018-09-01 11:10] MED LIST changes: -BAYER CHEWABLE81 MG; -PLAVIX75 MG PO
[2018-09-01 11:56] VITALS: BP 200/85; Ht 180.3 cm; Wt 88.6 kg
[2018-09-01 12:11] LABS: BASOPHILS 0.7 % (0-2); EOSINOPHILS 3.1 % (0-7); HEMATOCRIT 47.4 % (42.0-54.0); HEMOGLOBIN 16.9 g/dL (13.5-17.5); IMMATURE GRANULOCYTES 0.3 % (0-5); MCH 31.9 pg (26.0-34.0); MCHC 35.7 g/dL (31.0-37.0); MCV 89.4 fL (80.0-100.0); MEAN PLATELET VOLUME 12.6 fL (7.4-10.4); MONOCYTES 11.8 % (2-11); NEUTROPHILS 58.1 % (40-80); PLATELET COUNT 113 10x3/uL (130-400); RDW 11.9 % (11.5-14.5); WBC 7.6 10x3/uL (4.8-10.8)
[2018-09-01 12:24] LABS: CALC OSMOLALITY 276 mosm/kg (275-300); CALCIUM 9.8 mg/dL (8.5-10.1); CARBON DIOXIDE 28.7 mmol/L (21.0-32.0); CHLORIDE - SERUM 105 mmol/L (98-107); GLUCOSE 99 mg/dL (74-106); POTASSIUM - SERUM 4.4 mmol/L (3.5-5.1); SODIUM 138 mmol/L (136-145); UREA NITROGEN 16 mg/dL (7-18); eGFR NON AFRICAN AMERICAN 77 mL/min (90-120)
--- NOTE | 2018-09-01 16:20 | NUR ---
PT ARRIVED BY STRETCHER. PLACED ON MONITORS. ASSESSMENT COMPLETED. FAMILY AT BEDSIDE. CALL LIGHT WITHIN REACH. PT INSTRUCTED TO KEEP RIGHT LEG STRAIGHT AND HEAD FLAT ON PILLOW.
[2018-09-01] MEDS ORDERED: PLAVIX75 MG PO (16:25)
--- NOTE | 2018-09-01 16:35 | NUR ---
PT RESTING COMFORTABLY. RIGHT GROIN DRESSING C/D/I. NO S/S OF HEMATOMA NOTED. RIGHT PEDAL PULSE PALPABLE.
[2018-09-01] MEDS ORDERED: BAYER CHEWABLE81 MG (16:41)
--- NOTE | 2018-09-01 16:43 | NUR ---
DR. GARCIA CALLED. PT'S BP 212/96. ORDERS RECEIVED FOR CLONIDINE .1MG.
--- NOTE | 2018-09-01 17:10 | NUR ---
RIGHT GROIN DRESSING C/D/I. NO S/S OF HEMATOMA NOTED. BP TRENDING DOWN. CURRENTLY 176/82. HR 72
--- NOTE | 2018-09-01 17:40 | NUR ---
RIGHT GROIN DRESSING C/D/I. NO S/S OF HEMATOMA NOTED. VSS. RIGHT PEDAL PULSE PRESENT. FAMILY AT BEDSIDE. CALL LIGHT WITHIN REACH.
--- NOTE | 2018-09-01 18:30 | NUR ---
RIGHT GROIN DRESSING C/D/I. NO S/S OF HEMATOMA NOTED. VSS. FAMILY AT BEDSIDE. CALL LIGHT WITHIN REACH.
--- NOTE | 2018-09-01 19:00 | NUR ---
RIGHT GROIN DRESSING C/D/I. NO S/S OF HEMATOMA NOTED. CALL LIGHT WITHIN REACH. PT'S HEAD OF BED INC TO 30 DEGREES. TOLERATED WELL. SET UP WITH SANDWICH TRAY AND DRINK.
--- NOTE | 2018-09-01 19:27 | NUR ---
BP 185/91. CALLED DR. FULLER ROUGHER HELPER. ORDERS RECEIVED FOR CLONIDINE .1. AND CONTINUE WITH DISCHARGE HOME PLANNED.
--- NOTE | 2018-09-01 19:37 | NUR ---
DISCUSSED DISCHARGE INSTRUCTIONS WITH PT AND PT'S FAMILY. THEY VOICED UNDERSTANDING.
--- NOTE | 2018-09-01 19:40 | NUR ---
RIGHT AC PIV D/C'D WITH CATH TIP INTACT. PT TOLRATED WELL. INSTRUCTED TO GET UP AND DRESSED.
--- NOTE | 2018-09-01 19:45 | NUR ---
PT AMBULATED TO RESTROOM. STEADY GAIT NOTED. VOIDED WITHOUT DIFFICULTY. BACK TO ROOM. RECHECKED BP. 180/76. PT DENIES PAIN. RIGHT GROIN DRESSING C/D/I. NO S/S OF HEMATOMA NOTED. PT TO FOLLOW UP WITH PRIMARY CARE PHYSICIAN THIS FRIDAY. INSTRUCTED PT TO RECHECK BP AFTER HE ARRIVES HOME AND IN THE MORNING. HE VOICED UNDERSTANDING. HANDOUT GIVEN TO PT'S SON REGARDING MEDICATION GIVEN.
--- NOTE | 2018-09-01 20:00 | NUR ---
PT TAKEN TO VEHICLE BY WHEELCHAIR. NO S/S OF DISTRESS NOTED. ALL BELONGINGS AND PAPERWORK IN HAND.
== END 2018-09-01 20:00 | disposition home or self-care (01) ==
LOC: D.CATH 11:10
PROVIDERS: ATTEND Internal Medicine Cardiovascular Disease
DX: I25.119 Atherosclerotic heart disease of native coronary artery with unspecified angina pectoris (principal); Z01.812 Encounter for preprocedural laboratory examination

== ENCOUNTER → 2019-04-01 08:07 | Outpatient (CLI) | payer MEDICARE ==
[2018-09-01 11:56] VITALS: BMI 27.2
[~2019-04-01 08:07] MED LIST changes: +BAYER CHEWABLE81 MG; +PLAVIX75 MG PO
== END | disposition home or self-care (01) ==
LOC: D.HCCARDIO 08:07
PROVIDERS: ATTEND Internal Medicine Cardiovascular Disease
DX: I25.10 Atherosclerotic heart disease of native coronary artery without angina pectoris (principal)

== ENCOUNTER 2019-04-29 06:53 | Outpatient (CLI) | payer MEDICARE ==
[~2019-04-29] VITALS: Ht 180.3 cm; Wt 86.9 kg
--- NOTE | ~2019-04-29 | HEMODYNAMI ---
PATIENT:SHERRI KAUR MEDICAL RECORD: [id number] : 41 LOCATION:D.CAT ADMISSION DATE: 04/29/19 Generatedon:04/29/20199:34 Patient name: SHERRI KAUR Patient #: [id number] SSN: [id number] : 1945 Date of study: 04/29/2019 Page: Of Hemodynamic Procedure Report Patient Data Patient Demographics Procedure consent was obtained First Name: SHERRI Gender: Male Last Name: VINCENT : 1945 [facility] Initial: PUSHPA Age: 74 year(s) Patient #: [id number] Race: SSN: [id number] Additional ID: [id number] Contact details [address]: [address] [place] [address] State: [place] City: [place] Zip code: [address] Past Medical History Allergies: No known allergies Admission Admission Data Admission Date: 04/29/2019 Admission Time: 6:53 Arrival Date: 04/29/2019 Arrival Time: 0:00 Insurance Payor: Private health insurance [facility] #: [id number] Height (in.): 70.87 BSA: 2.07 (m2) Height (cm.): 180 BMI: 26.85 (kg/m2) Weight (lbs.): 191.8 Weight (kg.): 87 Lab Results Lab Result Date: 04/29/2019 Lab Result Time: 0:00 Biochemistry Name Units Result Min Max BUN mg/dl 14 --(--*-)-- 7 18 Creatinine mg/dl 1 --(--*-)-- 0.6 1.3 eGFR ml/min 76.13552 *-(----)-- 90 120 NONAFRICAN CBC Name Units Result Min Max Hematocrit % 45.8 --(-*--)-- 42 54 Hemoglobin g/dl 16 --(--*-)-- 13.5 17.5 Procedure Procedure Types Cath Procedure Diagnostic Procedure [facility] w/Coronaries Sedation Charges Moderate Sedation up to 15 minutes Procedure Description Procedure Date Procedure Date: 04/29/2019 Procedure Start Time: 9:16 Procedure End Time: 9:30 Procedure Staff Name Function Isaac Mcgregor MD Performing Physician Agnieszka Menchaca RT Monitor Mason Leslie RN Nurse Renetta Arrieta RT Scrub Indication CAD Procedure Data Cath Procedure Fluoroscopy Diagnostic fluoroscopy Total fluoroscopy Time: 2 time: 2 min min Diagnostic fluoroscopy Total fluoroscopy dose: 521 dose: 521 mGy mGy Contrast Material Contrast Material Type Amount (ml) Isovue 300 66 Entry Location Entry Primary Successful Side Size Upsize Upsize Entry Closure Succes sful Closure Location (Fr) 1 (Fr) 2 (Fr) Remarks Device Remarks Femoral Right 5 Fr Exoseal artery Estimated blood loss: 5 ml Diagnostic catheters Device Type Used For End Catheter Placement MULTIPACK JL 4.0 5Fr Left Coronary catheter Angiography MULTIPACK 3DRC 5Fr Procedure catheter MULTIPACK Pigtail 5 Fr LV Angiography catheter Procedure Complications No complications Procedure Medications Medication Administration Route Dosage Oxygen etCO2 Nasal cannula 2 l/min Heparin Flush Bag added to field 2 bags (1000units/500ml NS) 0.9% NaCl I.V. 100 ml/hr Lidocaine 2% added to field 20 Versed I.V. 1 mg Fentanyl I.V. 50 mcg Versed I.V. 1 mg Fentanyl I.V. 50 mcg Versed I.V. 1 mg Hemodynamics Rest BSA: 2.07 (m2) HGB: 16 (g/dl) O2 Consumption: Estimated: 235.55 (ml/min) O2 Cons umption indexed: Estimated:113.79 (ml/min/m) Heart Rate: 67 (bpm) Pressure Samples Time Site Value (mmHg) Purpose Heart Use Rate(bpm) 9:26 LV 134/-7,15 Snapshot 79 9:26 AO 134/63(92) Pullback 72 9:26 LV 131/-11,15 Pullback 72 Gradients Valve Time Site 1 Site 2 Mean SEP/DFP Peak To Heart Use (mmHg) (sec/min) Peak Rate (mmHg) (bpm) Aortic 9:26 LV AO 0 7 0 72 131/-11,15 134/63(92) Calculations Valve P-P Mean Valve Index Valve Source Name Gradient Area Flow (cm2) Aortic 0 0 0 0 Snapshots Pre Cath Intra NCS Post Cath Vital Signs Time Heart Resp SPO2 etCO2 NIBP (mmHg) Rhythm Pain Sedation Rate (ipm) (%) (mmHg) Status Level (bpm) 8:55:29 64 15 98 0 142/86(127) NSR 0 (11) 10(A) , No pain 8:59:45 67 14 94 37.3 126/72(102) NSR 0 (11) 10(A) , No pain 9:04:03 66 12 98 28.1 130/63(83) NSR 0 (11) 10(A) , No pain 9:08:15 62 11 97 32.7 118/69(104) NSR 0 (11) 10(A) , No pain 9:12:33 64 12 96 38 119/67(95) NSR 0 (11) 9(A) , No pain 9:16:47 64 11 93 35 115/66(89) NSR 0 (11) 9(A) , No pain 9:21:01 64 12 95 28.9 126/68(103) NSR 0 (11) 9(A) , No pain 9:25:21 70 10 96 33.5 133/64(110) NSR 0 (11) 9(A) , No pain 9:29:39 69 12 96 27.4 125/69(101) NSR 0 (11) 10(A) , No pain Medications Time Medication Route Dose Verified Delivered Reason Notes Effe ctiveness by by 8:59:50 Oxygen etCO2 2 Isaac Buffie used for Nasal l/min Balbir Leslie RN procedure cannula 9:00:17 Heparin Flush added 2 Isaac Buffie used for Bag to bags Balbir Leslie RN procedure (1000units/500ml field NS) 9:00:25 0.9% NaCl I.V. 100 Isaac Buffie Per ml/hr Balbir Leslie RN physician 9:00:46 Lidocaine 2% added 20ml Isaac Isaac for local to vial Balbir Mcgregor MD anesthetic field 9:02:00 Versed I.V. 1 mg Isaac Buffie for Balbir Leslie RN sedation 9:02:06 Fentanyl I.V. 50 Isaac Buffie for mcg Balbir Leslie RN sedation 9:12:24 Versed I.V. 1 mg Isaac Buffie for Balbir Leslie RN sedation 9:12:28 Fentanyl I.V. 50 Isaac Buffie for mcg Mcgregor MD Leslie RN sedation 9:18:43 Versed I.V. 1 mg Isaac Cuevas for Balbir Leslie RN sedation Procedure Log Time Note 8:44:03 Lab Result : BUN 14 mg/dl 8:44:03 Lab Result : eGFR NONAFRICAN 76.21817 ml/min 8:44:03 Lab Result : Creatinine 1 mg/dl 8:44:03 Lab Result : Hematocrit 45.8 % 8:44:03 Lab Result : Hemoglobin 16 g/dl 8:44:35 Informed consent obtained and on chart 8:45:06 Arrival Date: 04/29/2019 12:00:00 AM 8:45:27 Mason Leslie RN sent for patient. Start room use. 8:45:33 Insurance Payor : Private health insurance 8:45:53 Patient Height : 70.87 inches 8:45:58 Patient Weight : 191.8 lbs 8:47:23 Indication : CAD 8:47:38 Diagnostic Cath Status : Elective 8:49:21 Procedure Status Elective Heart Cath (OP). 8:49:46 Time tracking: Regular hours (M-F 7:00 - 5:00) 8:49:54 Plan of Care:Hemodynamics will remain stable., Cardiac rhythm will remain stable., Comfort level will be maintained., Respiratory function will remain adequate., Patient/ family verbilizes understanding of procedure., Procedure tolerated without complication., Recovers from procedure without complications.. 8:50:00 Patient received from Pre/Post Procedure Room to CCL 1 Alert and oriented. Tansferred to table in Supine position. 8:50:13 Warm blankets applied, and adam hugger turned on for patient comfort. 8:50:14 Correct patient and procedure confirmed by team. 8:50:15 ECG and BP/O2 sat monitors applied to patient. 8:54:23 Vital chart was started 8:54:24 Baseline sample Acquired. 8:54:29 Rhythm: sinus rhythm 8:54:31 Full Disclosure recording started 8:54:36 H&P Date Dictated: 04/29/2019 Within 30 days and on chart., H&P Addendum completed by physician on day of procedure. (MUST COMPLETE FOR ALL OUTPATIENTS). 8:54:38 Pre-procedure instructions explained to patient. 8:54:38 Pre-op teaching completed and patient verbalized understanding. 8:54:41 Family in waiting room. 8:54:42 Patient NPO since Midnight. 8:54:52 Is the patient allergic to Iodine/contrast media? No. 8:54:54 Was the patient premedicated? Yes 8:54:55 Is patient on blood thinner?Yes 8:54:57 ACC The patient was administered the following blood thiners within the last 24 hours: ACCPlavix 8:55:01 Patient diabetic? No. 8:55:10 Previous problem with sedation/anesthesia? No ? 8:55:12 Snore? Yes 8:55:13 Sleep apnea? No 8:55:15 Deviated septum? No 8:55:15 Opens mouth fully? Yes 8:55:16 Sticks out tongue? Yes 8:55:18 Airway obstruction? No ? 8:55:21 Dentures? No ? 8:55:26 Pre procedure: right dorsailis pedis pulse 1+ Palpable, but thready & weak; easily obliterated 8:55:28 Pre procedure: left dorsailis pedis pulse 1+ Palpable, but thready & weak; easily obliterated 8:55:31 Patient pain scale 0/10 ?. 8:55:42 IV patent on arrival in right wrist with 0.9% NaCl at O. 8:55:44 Lab results completed and on chart. 8:56:04 Stress Test: yes; abnormal ? 8:56:09 Risk of Mortality: <0.1 8:56:13 Risk of blood transfusion: 5.4 8:56:17 Risk of MANOHAR: 2.2 8:56:27 Left groin area was prepped with chlora-prep and draped in sterile fashion 8:56:28 Alarms reviewed by R. N. 8:56:29 Sharps counted by scrub and verified by R.N. 8:56:30 Physician arrived 8:56:32 --------ALL STOP TIME OUT------ 8:56:33 Final Timeout: patient, procedure, and site verified with staff and physician. All members of the team are in agreement. 8:56:52 Right groin site verified by team. 8:56:57 Fire Safety Assessment: A--An alcohol-based skin anteseptic being used preoperatively., C--Open oxygen or nitrous oxide is being used., D--An ESU, laser, or fiber-optic light is being used. 8:57:04 Physical assessment completed. ASA score P 2 - A patient with mild systemic disease as per Isaac Mcgregor MD. 8:57:18 2) 60-89 Mildly reduced kidney function, and other findings (as for stage 1) point to kidney disease. 8:57:44 Maximum allowable contrast dose (3.7 X eGFR X 0.75)213 ml. 8:57:48 Sedation plan: IV Moderate Sedation Medication:Versed, Fentanyl 8:57:59 Use device set Femoral Dx 8:58:01 ACIST Syringe (85587) opened to sterile field. 8:58:01 Bag Decanter (2002S) opened to sterile field. 8:58:02 Medline Cath Pack ([id number]) opened to sterile field. 8:58:03 ACIST Hand Control (45760) opened to sterile field. 8:58:03 ACIST Manifold (58480) opened to sterile field. 8:58:04 DIAGNOSTIC Multipack 5Fr catheter set (LW1382) opened to sterile field. 8:58:04 Tegaderm 4 x 4 (1626W) opened to sterile field. 8:58:05 SHEATH 5FR Wesco (UXW599) opened to sterile field. 8:58:06 EMERALD Guide Wire (268-319) opened to sterile field. 8:59:50 Oxygen 2 l/min etCO2 Nasal cannula was administered by Mason Leslie RN; used for procedure; Verbal order read back and verified. 9:00:17 Heparin Flush Bag (1000units/500ml NS) 2 bags added to field was administered by Mason Leslie RN; used for procedure; Verbal order read back and verified. 9:00:25 0.9% NaCl 100 ml/hr I.V. was administered by Mason Leslie RN; Per physician; Verbal order read back and verified. 9:00:46 Lidocaine 2% 20ml vial added to field was administered by Isaac Mcgregor MD; for local anesthetic; Verbal order read back and verified. 9:02:00 Versed 1 mg I.V. was administered by Mason Leslie RN; for sedation; Verbal order read back and verified. 9:02:06 Fentanyl 50 mcg I.V. was administered by Mason Leslie RN; for sedation; Verbal order read back and verified. 9::24 Versed 1 mg I.V. was administered by Mason Leslie RN; for sedation; Verbal order read back and verified. ::24 Procedure started. 9::28 Fentanyl 50 mcg I.V. was administered by Mason Leslie RN; for sedation; Verbal order read back and verified. 9:14:04 Zero performed for pressure channel P1 9:16:10 Local anesthetic to right femoral artery with Lidocaine 2% by Isaac Mcgregor MD.INITIAL ACCESS ONLY 9:18:43 Versed 1 mg I.V. was administered by Mason Leslie RN; for sedation; Verbal order read back and verified. 9:18:51 A 5 Fr sheath was inserted into the Right Femoral artery 9:18:57 A MULTIPACK JL 4.0 5Fr catheter was advanced over the wire and used for Left Coronary Angiography. 9:19:41 LCA angiography performed. 9::52 Injector settings: Ml/sec: 3, Volume: 6, 9:22:15 Catheter exchanged over wire. 9:22:21 A MULTIPACK 3DRC 5Fr catheter was advanced over the wire and used for Procedure. 9:23:40 RCA angiography performed. 9:23:43 Injector settings: Ml/sec: 3, Volume: 6, 9:25:39 Catheter removed. 9:25:46 A MULTIPACK Pigtail 5 Fr catheter was advanced over the wire and used for LV Angiography. 9:26:08 LV hemodynamics recorded. 9:26:09 LV gram done using SHEIKH 9:26:12 Injector settings: Ml/sec: 5, Volume: 15, 9:26:27 EF : 50 % 9:26:41 Catheter removed. 9:27:40 EXOSEAL 5Fr (EX500) opened to sterile field. 9:27:50 Sheath removed intact; hemostasis achieved with Exoseal to the Right Femoral artery. 9:28:01 Procedure ended.(Physican Out) 9::52 Fluoroscopy time 02.00 minutes. 9::56 Flurop Dose total: 521 9::56 Fluoroscopy dose: 521 mGy 9:29:02 Dose Area Product 73193 mGy/cm. 9:29:07 Contrast amount:Isovue 300 66ml. :29: Maximum allowable dose exceeded? No. 9:29:27 Sharps counted by scrub and verified by R.N. 9:29:35 Insertion/operative site no bleeding no hematoma. 9:29:42 Post-op/insertion site Right Femoral artery dressed using a 4 x 4 and Tegaderm. 9:29:45 Post Procedure Pulses reassessed and unchanged 9:29:48 Post procedure rhythm: unchanged. 9:29:51 Estimated blood loss: 5 ml 9:29:53 Post procedure instruction explained to patient.Patient verbalizes understanding. 9:29:53 Patient needs reinforcement of post procedure teaching. 9:30:13 Procedure type changed to Cath procedure, Diagnostic procedure, [facility], [facility] w/Coronaries, Sedation Charges, Moderate Sedation up to 15 minutes 9:30:14 Procedure and supply charges have been captured, reviewed, submitted and are correct. 9:30:21 Procedure Complication : No complications 9:30:24 Vital chart was stopped 9:30:27 [facility] Findings: mild to moderate CAD (<70%) 9:30:32 Operative report dictated upon procedure completion. 9:30:32 See physician's report for complete and final results. 9:30:36 Report given to Pre/Post Procedure Room. 9:30:38 Patient transfered to Pre/Post Procedure Room with Stretcher. 9:30:40 Procedure ended. 9:30:40 Full Disclosure recording stopped 9:30:46 End room use (Document Last) 9:33:38 End room use (Document Last) 9:34:03 End room use (Document Last) Device Usage Item Name Manufacture Quantity Catalog Hospital Part Current Minimal L ot# / Number Charge Number Stock Stock Serial# Code ACIST Acist 1 [id number] [id number] 089673 [id number] 20 Syringe Medical (36753) Systems Inc Bag Microtek 1 385628 83951 772146 5 Decanter Medical Inc. () Medline Medline 1 [id number] [id number] 36204 [id number] 5 Cath Pack ([id number]) ACIST Hand Acist 1 11887 808846 893465 885536 5 Control Medical (28151) Systems Inc ACIST Acist 1 09476 262728 452228 599090 5 Manifold Medical (07008) Systems Inc DIAGNOSTIC Cardinal 1 [id number] 057084 51220 476756 30 VendorShop Health 5Fr catheter set (UE1230) Tegaderm 4 3M 1 1626W 935872 409645 [id number] 5 x 4 (1626W) SHEATH 5FR Terumo 1 [id number] 357821 469237 826936 5 Wesco (PRQ413) EMERALD Cardinal 1 478-362 888872 898257 523530 5 Guide Wire Health (688-582) MULTIPACK Cardinal 1 073060 5 JL 4.0 5Fr Health catheter MULTIPACK Cardinal 1 403017 5 3DRC 5Fr Health catheter MULTIPACK Cardinal 1 323724 5 Pigtail 5 Health Fr catheter EXOSEAL 5Fr Cardinal 1 EX500 873369 146942 [id number] 10 (EX500) Health Signature Audit [place] Stage Time Signature Unsigned Intra-Procedure 04/29/2019 Agnieszka Menchaca 9:33:38 AM RT(R) Intra-Procedure 04/29/2019 Mason Leslie RN 9:34:03 AM Intra-Procedure 04/29/2019 Isaac Mcgregor MD 9:34:44 AM [facility] [address] [place] [address]
[2019-04-29] MEDS ORDERED: COZAAR50 MG PO (07:31)
[2019-04-29 07:42] VITALS: BP 116/68; Ht 180.3 cm; Wt 86.9 kg
[2019-04-29 08:05] LABS: HEMATOCRIT 45.8 % (42.0-54.0); IMMATURE GRANULOCYTES 0.2 % (0-5); LYMPHOCYTES 27.2 % (15-50); MCH 32.3 pg (26.0-34.0); MCHC 34.9 g/dL (31.0-37.0); MCV 92.3 fL (80.0-100.0); MEAN PLATELET VOLUME 13.3 fL (7.4-10.4); MONOCYTES 15.5 % (2-11); NEUTROPHILS 50.1 % (40-80); PLATELET COUNT 111 10x3/uL (130-400); RBC 4.96 10x6/uL (4.20-6.10); RDW 11.9 % (11.5-14.5); WBC 5.2 10x3/uL (4.8-10.8)
[2019-04-29 08:22] LABS: ALT (SGPT) 23 U/L (10-68); CALC OSMOLALITY 279 mosm/kg (275-300); CALCIUM 9.4 mg/dL (8.5-10.1); CARBON DIOXIDE 28.3 mmol/L (21.0-32.0); CHLORIDE - SERUM 106 mmol/L (98-107); CHOL - HDL RATIO 3.8 ratio (2.3-4.9); CHOLESTEROL, TOTAL 109 mg/dL (0-200); GLUCOSE 101 mg/dL (74-106); HDL CHOLESTEROL 29 mg/dL (32-96); LDL CHOLESTEROL 64 mg/dL (0-100); LDL-HDL RATIO 2.2 ratio (1.5-3.5); POTASSIUM - SERUM 4.6 mmol/L (3.5-5.1); SODIUM 140 mmol/L (136-145); TRIGLYCERIDE 82 mg/dL (30-200); UREA NITROGEN 14 mg/dL (7-18); eGFR NON AFRICAN AMERICAN 77 mL/min (90-120)
--- NOTE | 2019-04-29 09:47 | NUR ---
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 MONITORING INITIATED. R GROIN DRESSING TEGADERM AND 4X4 CDI, GROIN SOFT, PPP. HR 65,NSR. BP 117/66. RR 10, SAT 98%. INSTRUCTED NEED TO LIE FLAT, LEG STRAIGHT AND STILL, HEAD RELAXED ON PILLOW, FOR NEXT HOUR. VERBALIZES UNDERSTANDING.
--- NOTE | 2019-04-29 10:15 | NUR ---
R GROIN DRESSING CDI, GROIN SOFT. NO S/S BLEEDING OR HEMATOMA. RLE PPP. LEFT VOICEMAIL [facility] PER PT REQUEST FOR PT PICKUP, WITH CALLBACK NUMBER LEFT.
--- NOTE | 2019-04-29 10:41 | NUR ---
REC CALL BACK FROM EBONIE ZEPEDA, HE WILL BE HERE TO MAIL TECHNICIAN PT AT 1130 PLANNED DC TIME
--- NOTE | 2019-04-29 10:46 | NUR ---
R GROIN DRESSING REMAINS CDI, GROIN IS SOFT. NO S/S BLEEDING/HEMATOMA W RLE PPP. HR NSR 61, SAT 98% ON RA, BP 116/71
--- NOTE | 2019-04-29 11:00 | NUR ---
R GROIN CDI, REMAINS SOFT. PPP. NO S/S BLEEDING OR HEMATOMA. IV DC, TIP INTACT. PT HAVING APPLESAUCE PER REQUEST NOW.
--- NOTE | 2019-04-29 11:10 | NUR ---
DISCHARGE TEACHING REVIEWED. MONITORING DISCONTINUED. PT AMBULATED TO REST ROOM AND VOIDING WITHOUT DIFFICULTY.
--- NOTE | 2019-04-29 11:28 | NUR ---
DC HOME VIA WHEELCHAIR TO PRIVATE CAR WITH [facility]. PT HAS ALL BELONGINGS.
== END 2019-04-29 11:30 | disposition home or self-care (01) ==
LOC: D.CATH 06:53
PROVIDERS: ATTEND Internal Medicine Cardiovascular Disease
DX: I25.119 Atherosclerotic heart disease of native coronary artery with unspecified angina pectoris (principal); R94.39 Abnormal result of other cardiovascular function study; R06.00 Dyspnea, unspecified; R01.1 Cardiac murmur, unspecified